=== PATIENT | male | born 1960 | race Caucasian/White ===

== ENCOUNTER → 2016-08-19 | Outpatient (CLI) | payer BC | LOC: RAD 06:44 | PROVIDERS: ATTEND Family Medicine | DX: M25.512 Pain in left shoulder (principal); M75.112 Incomplete rotator cuff tear or rupture of left shoulder, not specified as traumatic | CPT/HCPCS: 73218; 73221 ==

== ENCOUNTER 2016-08-26 16:32 | Emergency (ER) | payer BC ==
[~2016-08-26] VITALS: Ht 190.5 cm; Wt 102.6 kg
[2016-08-26 18:44] LABS: BASOPHILS % (AUTO) 0 % (0-2); EOSINOPHILS % (AUTO) 1 % (0-4); LYMPHOCYTES # (AUTO) 1.3 X10^3; MEAN CORPUSCULAR HGB CONC 35.3 g/dL (31.0-37.0); MEAN CORPUSCULAR VOLUME 89 FL (80-100); MEAN PLATELET VOLUME 9.5 FL (6.0-9.5); MONOCYTES # (AUTO) 0.5 X10^3; MONOCYTES % (AUTO) 12 % (3-11); NEUTROPHILS # (AUTO) 2.2 X10^3; NEUTROPHILS % (AUTO) 55 % (51-67); PLATELET COUNT 198 10^3uL (150-450); WHITE BLOOD COUNT 4.09 10^3uL (4.0-11.0)
[2016-08-26 18:45] LABS: MEAN CORPUSCULAR HEMOGLOBIN 31.5 PG (26.0-34.0)
[2016-08-26 18:56] LABS: ALBUMIN 4.2 g/dL (3.4-5.0); ANION GAP 12.6 MEQ/L (3-15); CALCULATED IONIZED CALCIUM 3.9 mg/dL (3.8-4.6); TOTAL PROTEIN 7.3 g/dL (6.4-8.5)
--- NOTE | 2016-08-26 19:19 | NUR ---
Lab called and reports that the influenza swab is coming back inconclusive on the A/B, reported this issue to Dr. Romo and no new orders recieved at this time. Lab notified
[2016-08-26 19:53] VITALS: BP 124/87
== END 2016-08-26 19:42 | disposition home or self-care (01) ==
LOC: ED 16:33
DX: J98.8 Other specified respiratory disorders (principal)
CPT/HCPCS: 36415; 71020; 80053; 85025; 86140; 87502; 99282; 99283